=== PATIENT | male | born 2005 | race Caucasian/White ===

== ENCOUNTER 2025-08-15 10:16 | Emergency (ER) | payer BC, SELFPAY ==
[2025-08-15 10:19] VITALS: BP 105/69
--- NOTE | 2025-08-15 11:14 | ED.GENMED ---
History of Present Illness
General
Chief Complaint: Musculo-Skeletal Complaint
Source: patient
Exam Limitations: none
Time Seen by Provider: 08/15/25 11:08
Nursing documentation reviewed up to this point in time: agreed with
History of Present Illness
History of Present Illness:
19-year-old( male presents to the ER complaining of left shoulder pain. Patient was playing football plays football for [employer] and landed after being tackled on his left shoulder. He complains of pain with range of motion. He
denies any other injuries. Denies any headache. Denies any head injury.
Phy Exam
General Physical Exam
General Presentation: no apparent distress
General age: appears stated age
General Skin: warm and dry
General Habitus: normal
General Mental: alert
General Hydration: appears well hydrated
Cardiovascular Exam
Cardiovascular Exam: regular rate/rhythm, no murmur and normal peripheral pulses
Neurological Exam
Neurological Exam: alert and oriented x3
Musculoskeletal Exam
Musculoskeletal Exam: full ROM and other (Normal inspection to the left shoulder no obvious swelling mildly tender pain with range of motion)
Skin Exam
Skin Exam: normal color and warm/dry
Psychiatric Exam
Psychiatric Exam: normal mood/affect
Course
Orders/Labs/Results
Orders:
Orders
08/15/25 11:14
Shoulder, Left, Trauma CR [CR Shoulder, Trauma - Left] Urgent
Comment:
Reason For Exam: trauma
Vital Signs
Initial and Last Documented VS:
Initial Vital Signs
Temp Pulse Resp BP Pulse Ox
98 F 68 16 105/69 100
08/15/25 10:19 08/15/25 10:19 08/15/25 10:19 08/15/25 10:19 08/15/25 10:19
Last Documented Vital Signs
Temp Pulse Resp BP Pulse Ox
98 F 64 18 121/68 99
08/15/25 10:19 08/15/25 12:45 08/15/25 12:45 08/15/25 12:45 08/15/25 12:45
MDM/Problems Addressed
Differential Diagnosis Includes:
Not limited to contusion fracture rotator cuff injury sprain strain.
MDM/Problems Addressed:
No fracture symptoms consistent with contusion possible rotator cuff injury will DC with Ortho follow-up. She has a sling in place discussed ice and ibuprofen
*Radiology
Radiology exam reviewed: radiology read reviewed
*Pulse Oximetry
SaO2: 100
Oxygen Mode of Delivery: Room air
Patient hypoxic: no
*Critical Care Note
Total Time (30-74mins, 75-104mins- exclusive of procedures): Not Applicable
ED Attending Note
-
Portions of this chart may have been created with voice recognition software.� Occasional wrong word or��sound alike� substitutions may have occurred due to the inherent limitations of voice recognition software.
Discharge Plan
Departure
Patient Disposition: Home (Routine Discharge)
Date of Disposition: 08/15/25
Time of Disposition: 12:42
Patient with high blood pressure during this ER visit?: No
Condition: Fair
Covid-19: Not Applicable
Discharge Problem:
Contusion
Instructions: Contusion (DC)
Referrals:
Jeffery Rojas MD [Family Provider, Pediatrics]
Activity Restrictions/Additional Instructions:
Wear sling for support ice the affected area for the next 24 hours 20 minutes at a time several times a day. Ibuprofen as needed every 8 hours with food. Follow-up with orthopedics next several days return if any worsening of symptoms.
Interventions
Interventions:
*Risk Screen - Suicide Last Done: 08/15/25 10:19
*General Assessment Last Done: 08/15/25 11:12
*Neglect/Abuse Screening Last Done: 08/15/25 10:19
*ED- Fall Risk Assessment Last Done: 08/15/25 11:12
*Nursing Disposition Last Done: 08/15/25 12:45
ED-Musculoskeletal Assessment Last Done: 08/15/25 11:12
Discharge Date and Time
Discharge Date/Time: 08/15/25 12:45
Print Language: LAO
[2025-08-15 12:45] VITALS: BP 121/68
== END 2025-08-15 12:45 | disposition home or self-care (01) ==
LOC: EMR 10:16
PROVIDERS: EMERGENCY PHYSICIAN Emergency Medicine; FAMILY PHYSICIAN Pediatrics
DX: S40.012A Contusion of left shoulder, initial encounter (principal); Y93.61 Activity, american tackle football; Y92.321 Football field as the place of occurrence of the external cause; Y99.8 Other external cause status
CPT/HCPCS: 99283; 73030